=== PATIENT | female | born 1990 | race Hispanic/Latino ===

== ENCOUNTER 2021-09-15 19:12 | Emergency (ER) | payer MEDICARE ==
[~2021-09-15] VITALS: Ht 149.9 cm; Wt 65.3 kg
[2021-09-15] MEDS ORDERED: PYRIDIUM100 MG PO (19:59)
[2021-09-15] MEDS ORDERED: CEFDINIR300 MG PO (19:59)
[2021-09-15] MEDS ORDERED: CEFTRIAXONE 1 GM VIAL IM ONE (20:00)
[2021-09-15] MEDS ORDERED: HYDROCODONE/APAP 5MG-325MG TAB PO ONE (20:00)
[2021-09-15] MEDS ORDERED: HYDROCODONE/APAP 5MG-325MG TAB ONE (20:12)
[2021-09-15] MEDS ORDERED: CEFTRIAXONE 1 GM VIAL ONE (20:12)
== END 2021-09-15 20:30 | disposition home or self-care (01) ==
LOC: FSED 19:55
DX: R30.0 Dysuria (principal); N30.00 Acute cystitis without hematuria; M32.9 Systemic lupus erythematosus, unspecified; F41.9 Anxiety disorder, unspecified
CPT/HCPCS: 81003; 81025; 99283; J0696